=== PATIENT | female | born 1955 | race Caucasian/White ===

== ENCOUNTER 2017-03-01 16:17 | Emergency (ER) | payer MEDICAID ==
[~2017-03-01] VITALS: Ht 160 cm; Wt 89.8 kg
--- NOTE | 2017-03-01 17:08 | RADIOLOGY REPORT PS360 ---
KNEE-3 VIEWS-LT COMPARISON: None HISTORY: Left knee pain after a fall at home TECHNIQUE: AP lateral and oblique views FINDINGS: There is a mildly depressed fracture of the lateral tibial plateau. There is a moderate-sized sized joint effusion are relatively in the suprapatellar bursa. The calcified periarticular calcification probably within the os to joint capsule and is a second somewhat curious calcification just beneath the surface of the skin in the popliteal fossa probably dystrophic calcination from previous injury. The femoral condyles and head of the fibula appear intact. IMPRESSION: Mildly depressed lateral tibial plateau fracture associated with moderate-sized joint effusion. Consider follow-up nonemergent CT scan or MRI scan of the knee for better evaluation.
--- NOTE | 2017-03-01 17:39 | Urgent Treatment Center Report ---
History of Present Issue Date/Time Seen by Provider 03/01/17 1630 Visit Reason Pt arrived:Wheelchair Presenting Problem:PT FELL OVER A LEGO BOX AT HOME AND INJURED LT KNEE AT 1530 Location if Accident:Home Onset of symptoms date/time:/ or onset unknown for:MEDICAL HX UNKNOWN Have you (or family members/close friends) recently traveled outside the [place]? N If Yes, where/when: Have you had exposure to infectious disease within the past month? TB? Other? Specify: Patient family advised that she was at home playing with her grandchildren when she slipped and fell over Lego box and her left knee folded back underneath her States that she immediately yelled and had sharp pain that shot through her leg Family assisted her in to [facility] to get checked ALLERGIES Uncoded Allergies: STEROID (Mild, 03/01/17) History Medical History General CAD? No Angina: No ME: No Hypertension? Yes Hyperlipidemia? Yes CHF? No DVT? No PE? No COPD? Yes Asthma? No Anemia? No GERD? No Gastric ulcers? No GI Bleed? No Hernia? Yes Thyroid Problems? No Hypothyroidism? No CVA? Yes Seizures? No Diabetes? Yes Insulin Dependent: No Insulin Pump: No Home FSBS? Yes Renal Insuffiency? No UTI? No Stones? Yes BPH? No GB Disease: Yes Nephritic Syndrome? No Asplenia? No Hepatitis? No Sickle Cell Disease? No Arthritis? No Migraines? No Cataracts? No Glaucoma? No MRSA? No HIV? No TB? No Anxiety? No Depression? No Cancer? No More? No Immunization HX DT/Tetanus 5-10 YRS Flu NOT SURE Pneumonia NEVER Surgical Hx Previous Surgery?Y LAP LENY APPENDECTOMY PARTIAL HYSTERECTOMY TUBAL LIGATION Family History Family HX Diabetes Yes CAD No Hypertension Yes Hyperlipidemia Yes Cancer Yes TB No Social History Smoking Hx Smoker: Current Every Day Smoker Tobacco: Yes Type Cigarettes Packs/day 1 1/2 - 2 Packs Alcohol Alcohol: No Review of Systems All Other Systems Reviewed and Negative Comment Pain in left knee area after falling at home and left leg bent underneath her Physical Exam Vital Signs Vital Signs Date Time Temp Pulse Resp B/P Pulse O2 O2 Flow FiO2 Ox Delivery Rate 03/01 1656 98.1 79 18 150/80 95 General Appearance normal appearance, WD/WN, no apparent distress Respiratory Status Yes: trachea midline, chest symmetrical. No: respiratory distress. Cardiovascular normal exam, regular rate/rhythm Extremities swelling, Pain and mild swelling in left knee and lower leg after falling at home, good pulses noted with good cap refill, denies numbness, no change in color or temperature Neurologic alert, normal exam, oriented x 3 Medical Decision Making LABS/Meds/Orders Pt receiving controlled substance in ED? No Results/Orders Current Medication Orders Sig/Bernarda Start time Last Medication Dose Route Stop Time Status Admin Ibuprofen 800 MG ONCE ONE 03/01 1700 DC 03/01 PO 03/01 170 1656 Ibuprofen 0 .STK-MED ONE 03/01 1653 DC PO Orders Procedure Date/time Status UTC STABILIZE JOINT/AREA 03/01 1734 Active UTC STABILIZE JOINT/AREA 03/01 172 Active XRAY/CT/US XRAY/CT/US XRAY knee XR interpretation by discussed w/radiologist Xray Results Lateral tibial plateau fracture Consult MD Physician Consult Consult/PCP Dr Cristobal, advised place in knee Reason Orthopedic eval/care Comments Dr Cristobal spoke to advised to place Knee immobilizer and place on crutches non- weight baring and follow up in his office on Thursday Progress [facility] Progress Notes Comment Consulted with Dr Knott from ER, he came to [facility] and spoke with patient and did quick assessment due to patient fracture and needed something stronger for pain. Departure Departure Time of Disposition 1732 Disposition DC Home or Self Care(routine) Clinical Impression Primary Impression: Tibial plateau fracture, left Qualifiers: Encounter type: initial encounter Fracture type: closed Qualified Code: S82.142A - Displaced bicondylar fracture of left tibia, initial encounter for closed fracture Condition STABLE Referrals ARMINDA BERGERON, FLORES VERDUGO: Tomorrow-Call Office Call office tomorrow and make appoitnemtn for Thursday SAUL RAMIREZ (Family) Patient Instructions How To Perform RICE (Rest, Ice, Compress, Elevate), How to Quit Smoking, How to Use Crutches, SMOKING-COUNSELING PATIENTS Additional Instructions Call Dr Cristobal office tomorrow and make appointment for Thursday Take medication as prescribed REturn if needed *non-weight bearing Do not bear weigh on this leg use crutches as instructed in the office *RICE, Rest the extremity, Ice 15-20 minutes 3-4 times daily, Compress- wear the manas wrap as discussed as much as possible to help reduce swelling and pain, Elevate the extremity when at rest *Manas wrap is for support and help control swelling, use it except in the shower. Be sure that is not to tight but not to loose either *Elevate when resting *Ibuprofen every 6-8 hours as needed for pain an inflammation. Immediately follow up for new or worsening of symptoms, or no noticeable improvement over the next 3-5 days Discharge Counseling Counseled pt/family regarding diagnosis, test results, medications/RX, home care, follow up needs Comments Prescription written by Dr Knott at [phone]
--- NOTE | 2017-03-01 17:39 | Urgent Treatment Center Report ---
History of Present Issue Date/Time Seen by Provider 03/01/17 1630 Visit Reason Pt arrived:Wheelchair Presenting Problem:PT FELL OVER A LEGO BOX AT HOME AND INJURED LT KNEE AT 1530 Location if Accident:Home Onset of symptoms date/time:/ or onset unknown for:MEDICAL HX UNKNOWN Have you (or family members/close friends) recently traveled outside the [place]? N If Yes, where/when: Have you had exposure to infectious disease within the past month? TB? Other? Specify: Patient family advised that she was at home playing with her grandchildren when she slipped and fell over Lego box and her left knee folded back underneath her States that she immediately yelled and had sharp pain that shot through her leg Family assisted her in to [facility] to get checked ALLERGIES Uncoded Allergies: STEROID (Mild, 03/01/17) History Medical History General CAD? No Angina: No PR: No Hypertension? Yes Hyperlipidemia? Yes CHF? No DVT? No PE? No COPD? Yes Asthma? No Anemia? No GERD? No Gastric ulcers? No GI Bleed? No Hernia? Yes Thyroid Problems? No Hypothyroidism? No CVA? Yes Seizures? No Diabetes? Yes Insulin Dependent: No Insulin Pump: No Home FSBS? Yes Renal Insuffiency? No UTI? No Stones? Yes BPH? No GB Disease: Yes Nephritic Syndrome? No Asplenia? No Hepatitis? No Sickle Cell Disease? No Arthritis? No Migraines? No Cataracts? No Glaucoma? No MRSA? No HIV? No TB? No Anxiety? No Depression? No Cancer? No More? No Immunization HX DT/Tetanus 5-10 YRS Flu NOT SURE Pneumonia NEVER Surgical Hx Previous Surgery?Y LAP LENY APPENDECTOMY PARTIAL HYSTERECTOMY TUBAL LIGATION Family History Family HX Diabetes Yes CAD No Hypertension Yes Hyperlipidemia Yes Cancer Yes TB No Social History Smoking Hx Smoker: Current Every Day Smoker Tobacco: Yes Type Cigarettes Packs/day 1 1/2 - 2 Packs Alcohol Alcohol: No Review of Systems All Other Systems Reviewed and Negative Comment Pain in left knee area after falling at home and left leg bent underneath her Physical Exam Vital Signs Vital Signs Date Time Temp Pulse Resp B/P Pulse O2 O2 Flow FiO2 Ox Delivery Rate 03/01 1656 98.1 79 18 150/80 95 General Appearance normal appearance, WD/WN, no apparent distress Respiratory Status Yes: trachea midline, chest symmetrical. No: respiratory distress. Cardiovascular normal exam, regular rate/rhythm Extremities swelling, Pain and mild swelling in left knee and lower leg after falling at home, good pulses noted with good cap refill, denies numbness, no change in color or temperature Neurologic alert, normal exam, oriented x 3 Medical Decision Making LABS/Meds/Orders Pt receiving controlled substance in ED? No Results/Orders Current Medication Orders Sig/Bernarda Start time Last Medication Dose Route Stop Time Status Admin Ibuprofen 800 MG ONCE ONE 03/01 1700 DC 03/01 PO 03/01 170 1656 Ibuprofen 0 .STK-MED ONE 03/01 1653 DC PO Orders Procedure Date/time Status UTC STABILIZE JOINT/AREA 03/01 1734 Active UTC STABILIZE JOINT/AREA 03/01 172 Active XRAY/CT/US XRAY/CT/US XRAY knee XR interpretation by discussed w/radiologist Xray Results Lateral tibial plateau fracture Consult MD Physician Consult Consult/PCP Dr Cristobal, advised place in knee Reason Orthopedic eval/care Comments Dr Cristobal spoke to advised to place Knee immobilizer and place on crutches non- weight baring and follow up in his office on Thursday Progress [facility] Progress Notes Comment Consulted with Dr Knott from ER, he came to [facility] and spoke with patient and did quick assessment due to patient fracture and needed something stronger for pain. Departure Departure Time of Disposition 1732 Disposition DC Home or Self Care(routine) Clinical Impression Primary Impression: Tibial plateau fracture, left Qualifiers: Encounter type: initial encounter Fracture type: closed Qualified Code: S82.142A - Displaced bicondylar fracture of left tibia, initial encounter for closed fracture Condition STABLE Referrals ARMINDA BERGERON, FLORES VERDUGO: Tomorrow-Call Office Call office tomorrow and make appoitnemtn for Thursday SAUL RAMIREZ (Family) Patient Instructions How To Perform RICE (Rest, Ice, Compress, Elevate), How to Quit Smoking, How to Use Crutches, SMOKING-COUNSELING PATIENTS Additional Instructions Call Dr Cristobal office tomorrow and make appointment for Thursday Take medication as prescribed REturn if needed *non-weight bearing Do not bear weigh on this leg use crutches as instructed in the office *RICE, Rest the extremity, Ice 15-20 minutes 3-4 times daily, Compress- wear the manas wrap as discussed as much as possible to help reduce swelling and pain, Elevate the extremity when at rest *Manas wrap is for support and help control swelling, use it except in the shower. Be sure that is not to tight but not to loose either *Elevate when resting *Ibuprofen every 6-8 hours as needed for pain an inflammation. Immediately follow up for new or worsening of symptoms, or no noticeable improvement over the next 3-5 days Discharge Counseling Counseled pt/family regarding diagnosis, test results, medications/RX, home care, follow up needs Comments Prescription written by Dr Knott at [phone]
[2017-03-01 17:41] VITALS: BP 150/80
--- OUTSIDE RECORDS SUMMARY | 2017-03-06 21:06 | External Medical Summary Rpt | CCD ---
Author Author , AISLINN TAO Address Unknown Phone Purpose Continuity of Care Document - 02-01-2014 through 2016 Allergies, Adverse Reactions, Alerts Clinical Alert Notifications Alert Diabetes: no A1C in the last 6 months Diabetes: no eye exam in the last 365 days Diabetes: no influenza vaccine in the last 365 days Diabetes: no lipid panel in the last 365 days Diabetes: no urine protein screening in the last 365 days Medications Na ND Rx Da Fi Fi Am Da Di Ph RX Ph St me C No te ll ll ou ys ag ar # ys at rm s nt no ma ic us Or Da si cy ia de te s n re d LO 00 08 09 30 30 00 KE Ac RA 78 -2 -2 .0 00 NT ti TA 15 9- 2- 00 00 UC ve DI 07 20 20 86 [place] NE 70 17 17 07 1 90 CV 10 S PH MG AR MA TA CY BL ET LL C, DB A CV S PH AR MA CY #0 54 [id number] FL 00 08 09 16 30 00 KE Ac UT 05 -2 -2 .0 00 NT ti IC 43 9- 2- 00 00 UC ve 27 20 20 86 [place] ON 09 17 17 07 E [address] S OP PH AR 50 MA CY MC G LL SP C, RA Y DB A CV S PH AR MA CY #0 54 37 ME 65 08 09 90 30 00 KE Ac CL 16 -1 -1 .0 00 NT ti IZ 20 9- 5- 00 00 UC ve IN 44 20 20 86 [place] E 21 17 17 07 25 0 87 CV S MG PH AR TA MA BL CY ET LL C, DB A CV S PH AR MA CY #0 54 37 LI 68 08 09 90 90 00 KE Ac SI 18 -1 -0 .0 00 NT ti NO 00 5- 8- [address] 98 20 20 89 [place] 00 17 17 31 3 24 CV 10 S PH MG AR MA TA CY BL ET LL C, DB A CV S PH AR MA CY #[address] 00 08 09 90 90 00 KE Ac AV 09 -1 -0 .0 00 NT ti 37 5- 8- 00 00 UC ve TA 20 20 20 89 [place] TI 19 17 17 31 N 8 23 CV SO S DI PH UM AR MA 20 CY MG LL C, TA B DB A CV S PH AR MA CY #0 54 37 GL 60 07 07 18 60 00 KE Ac IP 50 -0 -2 0. 00 NT ti IZ 50 4- 8- 00 00 UC ve ID 14 20 20 0 87 [place] E 10 17 17 19 5 1 41 CV MG S PH TA AR BL MA ET CY LL C, DB A CV S PH AR MA CY #0 54 37 LI 68 05 06 90 90 00 KE Ac SI 18 -2 -1 .0 00 NT ti NO 00 3- 6- [address] 98 20 20 89 [place] 00 17 17 31 3 24 CV 10 S PH MG AR MA TA CY BL ET LL C, DB A CV S PH AR MA CY #[address] 00 05 06 90 90 00 KE Ac AV 09 -2 -1 .0 00 NT ti 37 3- 6- 00 00 UC ve TA 20 20 20 89 [place] TI 19 17 17 31 N 8 23 CV SO S DI PH UM AR MA 20 CY MG LL C, TA B DB A CV S PH AR MA CY #0 54 37
--- OUTSIDE RECORDS SUMMARY | 2017-03-06 21:06 | External Medical Summary Rpt | CCD ---
Author Author , AISLINN TAO Address Unknown Phone [email or web address] Purpose Continuity of Care Document - 02-01-2014 [...] 17 17 07 E 9 91 CV MD S OP PH AR 50 MA CY [...] 00 5- 8- 00 00 UC ve MD 98 20 20 89 [place] 00 17 17 31 3 24 CV 10 S PH MG AR MA TA CY BL ET LL C, DB A CV S PH AR MA CY #0 54 37 MD 00 08 09 90 90 00 KE [...] 00 3- 6- 00 00 UC ve MD 98 20 20 89 [place] 00 17 17 31 3 24 CV 10 S PH MG AR MA TA CY BL ET LL C, DB A CV S PH AR MA CY #0 54 37 MD 00 05 06 90 90 00 KE [...]
--- OUTSIDE RECORDS SUMMARY | 2017-03-06 21:07 | External Medical Summary Rpt ---
Author Author LIUSHERI Lawson, [employer] Organization [employer] Address Unknown Phone Unavailable Results BMP Observa Value Referen Units Interpr Notes Date tion ce etation Range Sodium 135 136 - mmol/L Low No Jun 23 145 informa 2017 tion in 9:41 PM source data Potassi 5.3 3.5 - mmol/L High No Jun 23 um 5.0 informa 2016 [Moles/ tion in 9:41 PM volume] source in data Serum or Plasma Chlorid 94 98 - mmol/L Low No Jun 23 e 107 informa 2016 tion in 9:41 PM source data Carbon 30 22 - 29 mmol/L High No Jun 23 dioxide informa 2016 , total tion in 9:41 PM source [Moles/ data volume] in Serum or Plasma Anion 11 7 - 16 mmol/L No No Jun 23 Gap informa informa 2017 tion in tion in 9:41 PM source source data data CALCIUM 9.4 8.8 - mg/dL No No Jun 23 .TOTAL 10.2 informa informa 2016 tion in tion in 9:41 PM source source data data Glucose 267 82 - mg/dL High No Jun 23 Lvl 100 informa 2017 tion in 9:41 PM source data BUN 17 8 - 23 mg/dL No No Jun 23 informa informa 2017 tion in tion in 9:41 PM source source data data Creatin 0.56 0.51 - mg/dL No No Jun 23 ine 1.30 informa informa 2017 tion in tion in 9:41 PM source source data data Ur Malb/Cr Observa Value Referen Units Interpr Notes Date tion ce etation Range Urine 459.7 No mg/L No No May 23 Microal informa informa informa 2016 b tion in tion in tion in 5:50 PM source source source data data data Urine 53.4 No mg/dL No No May 23 Creatin informa informa informa 2016 ine tion in tion in tion in 5:50 PM source source source data data data Ur 861 0 - 30 mg/gm High No May 23 Microal informa 2016 b/Creat tion in 5:50 PM source data Lipase Observa Value Referen Units Interpr Notes Date tion ce etation Range Lipase 52 13 - 60 IU/L No No May 23 Lvl informa informa 2016 tion in tion in 5:19 PM source source data data Amylase Observa Value Referen Units Interpr Notes Date tion ce etation Range AMYLASE 42 28 - IU/L No No May 23 .TOTAL 100 informa informa 2016 tion in tion in 5:19 PM source source data data US RIGHT UPPER QUADRANT Observa Value Referen Units Interpr Notes Date ti ce etation Range US No No No No May 17 RIGHT informa informa informa informa 2016 UPPER tion in tion in tion in tion in 8:55 AM QUADRAN source source source source T data data data data 016 9:14 AM\.br\ \.br\Hi story: R10.13- Epigast [place] pain-IC D-10-CM \.br\R9 4.5-Abn ormal results of liver functio n studies -ICD-10 -CM\.br \\.br\C omparis on: None\.b r\\.br\ Finding s:\.br\ \.br\Ga llbladd er: Surgica lly absent\ .br\Danika er: Echogen ic, consist ent with fatty infiltr ation. No focal lesion. \.br\Li issa\.br \appear s mildly enlarge d measuri ng approxi mately 23 cm dome to right hepatic \.br\ti p.\.br\ \.br\Pa ncreas: Visuali zed portion s normal. \.br\Ri ght Kidney: Non-obs tructed .\.br\C ommon duct: <5mm\.b r\No fluid collect ion.\.b r\\.br\ IMPRESS ION:\.b r\Impre ssion: Mildly enlarge d echogen ic liver consist ent with fatty\. br\infi ltratio n.\.br\ Hep C Ab Observa Value Referen Units Interpr Notes Date tion ce etation Range Hep C Negativ Negativ No No No May 15 Ab e e informa informa informa 2016 tion in tion in tion in 9:45 AM source source source data data data Glyco Observa Value Referen Units Interpr Notes Date tion ce etation Range Hemoglo 7.8 <=7.0 % High Referen May 14 bin ce 2015 A1c/Hem Interva 11:15 oglobin l for PM .total Hgb in A1c\.br Blood \\.br\H gb A1c Interpr etation \.br\-- ------- -- ------- ------- --\.br\ \.br\ < 6.0 Non-Ekta betic Range\. br\6.0 - 7.0 ADA Therape utic Target\ .br\ > 7.0 Action suggest ed LDL Observa Value Referen Units Interpr Notes Date tion ce etation Range LDL 84 <=100 mg/dL No < 100 May 14 Calcula informa 2016 juanita tion in 9:59 PM source Optimal data \.br\10 0 - 129 Near or above optimal \.br\13 0 - 159 Borderl ine High\.b r\160 - 189 High\.b r\ >= 190 Very High TSH Observa Value Referen Units Interpr Notes Date tion ce etation Range Thyrotr 1.980 0.270 - mcIU/mL No No May 14 opin 4.200 informa informa 2016 [Units/ tion in tion in 9:59 PM volume] source source in data data Serum or Plasma Lipid Refx Observa Value Referen Units Interpr Notes Date tion ce etation Range Cholest 173 <=200 mg/dL No < 200 May 14 sarah informa 2016 [Percen tion in 9:59 PM tile] source Desirab data le\.br\ 200 - 239 Borderl ine High\.b r\>= 240 High TRIGLYC 113 <=150 mg/dL No < 150 May 14 ERIDES. informa 2016 TOTAL tion in Normal\ 9:59 PM source .br\150 data - 199 Borderl ine High\.b r\200 - 499 High\.b r\ >= 500 Very High CHOLEST 66 >=40 mg/dL No > 60 May 14 EROLS.I informa 2016 N HDL tion in Optimal 9:59 PM source \.br\40 data - 60 Accepta ble\.br \ < 40 Low CBC Observa Value Referen Units Interpr Notes Date tion ce etation Range LEUKOCY 10.5 4.0 - x10(3)/ No May 14 NICOLE 11.0 mcL informa informa 2016 tion in tion in 9:50 PM source source data data Erythro 5.05 3.80 - x10(6)/ No May 14 cytes 5.10 mcL informa informa 2016 [#/volu tion in tion in 9:50 PM me] in source source Blood data data by Automat ed count Hemoglo 14.2 12.0 - gm/dL No May 14 bin 15.6 informa informa 2016 [Mass/v tion in tion in 9:50 PM olume] source source in data data Blood Hematoc 43.8 35.7 - % No May 14 rit 45.9 informa informa 2016 [Volume tion in tion in 9:50 PM source source Fractio data data n] of Blood by Automat ed count Erythro 86.8 82.5 - fL No May 14 cyte 99.8 informa informa 2016 mean tion in tion in 9:50 PM corpusc source source ular data data volume [Entiti c volume] by Automat ed count Erythro 28.1 27.0 - pg No May 14 cyte 34.3 informa informa 2016 mean tion in tion in 9:50 PM corpusc source source ular data data hemoglo bin [Entiti c mass] by Automat ed count Erythro 32.4 32.1 - gm/dL No May 14 cyte 35.3 informa informa 2016 mean tion in tion in 9:50 PM corpusc source source ular data data hemoglo bin concent ration [Mass/v olume] by Automat ed count Erythro 14.4 11.5 - % No May 14 cyte 15.0 informa informa 2016 distrib tion in tion in 9:50 PM ution source source width data data [Ratio] by Automat ed count Platele 256 144 - x10(3)/ No May 14 ts 423 mcL informa informa 2016 [#/volu tion in tion in 9:50 PM me] in source source Blood data data by Automat ed count MPV 10.4 6.8 - fL No No May 14 10.8 informa informa 2016 tion in tion in 9:50 PM source source data data Auto Diff Observa Value Referen Units Interpr Notes Date tion ce etation Range Neutrop 65.5 No % No No May 14 hils informa informa informa 2016 [#/volu tion in tion in tion in 9:50 PM me] in source source source Blood data data data by Automat ed count Lymphoc 23.5 No % No No May 14 ytes informa informa informa 2016 [#/volu tion in tion in tion in 9:50 PM me] in source source source Blood data data data by Automat ed count Monocyt 6.6 No % No No May 14 es informa informa informa 2016 [#/volu tion in tion in tion in 9:50 PM me] in source source source Blood data data data by Automat ed count Eos 3.8 No % No No May 14 Percent informa informa informa 2016 tion in tion in tion in 9:50 PM source source source data data data Baso 0.6 No % No No May 14 Percent informa informa informa 2016 tion in tion in tion in 9:50 PM source source source data data data Neut# 6.9 1.8 - x10(3)/ No No May 14 7.7 mcL informa informa 2016 tion in tion in 9:50 PM source source data data Lymph# 2.5 0.6 - x10(3)/ No No May 14 4.8 mcL informa informa 2016 tion in tion in 9:50 PM source source data data [place]# 0.7 0.0 - x10(3)/ No No Apr 21 1.3 mcL informa informa 2016 tion in tion in 9:50 PM source source data data Eos# 0.4 0.0 - x10(3)/ No No Apr 21 0.5 mcL informa informa 2016 tion in tion in 9:50 PM source source data data Baso# 0.1 0.0 - x10(3)/ No No May 14 0.2 mcL informa informa 2016 tion in tion in 9:50 PM source source data data LDL Observa Value Referen Units Interpr Notes Date tion ce etation Range LDL 93 <=100 mg/dL No < 100 May 03 Calcula informa 2015 juanita tion in 7:02 PM source Optimal data \.br\10 0 - 129 Near or above optimal \.br\13 0 - 159 Borderl ine High\.b r\160 - 189 High\.b r\ >= 190 Very High Lipid Refx Observa Value Referen Units Interpr Notes Date tion ce etation Range Cholest 159 <=200 mg/dL No < 200 May 03 sarah informa 2015 [Percen tion in 7:02 PM tile] source Desirab data le\.br\ 200 - 239 Borderl ine High\.b r\>= 240 High TRIGLYC 96 <=150 mg/dL No < 150 May 03 ERIDES. informa 2015 TOTAL tion in Normal\ 7:02 PM source .br\150 data - 199 Borderl ine High\.b r\200 - 499 High\.b r\ >= 500 Very High CHOLEST 47 >=40 mg/dL No > 60 May 03 EROLS.I informa 2015 N HDL tion in Optimal 7:02 PM source \.br\40 data - 60 Accepta ble\.br \ < 40 Low Glyco Observa Value Referen Units Interpr Notes Date tion ce etation Range Hemoglo 7.5 <=7.0 % High Referen May 03 bin ce 2014 A1c/Hem Interva 6:57 PM oglobin l for .total Hgb in A1c\.br Blood \\.br\H gb A1c Interpr etation \.br\-- ------- -- ------- ------- --\.br\ \.br\ < 6.0 Non-Ekta betic Range\. br\6.0 - 7.0 ADA Therape utic Target\ .br\ > 7.0 Action suggest ed MM MOBILE MAMMO DIGITAL SCREEN W CAD TONIO Observa Value Referen Units Interpr Notes Date tion ce etation Range Procedu No No No No Sep 3 re:MM informa informa informa informa 2015 MOBILE tion in tion in tion in tion in 3:03 PM MAMMO source source source source DIGITAL data data data data SCREEN W CAD TONIO\.br \Reason for exam: screeni ng (asympt omatic) .\.br\M M MOBILE MAMMO DIGITAL SCREEN W CAD TONIO\.br \Bilate ral CC and MLO view(s) were taken.\ .br\The re are scatter ed fibrogl andular densiti es. Compare d to prior studies \.br\th e most recent being 01-17-11 \.br\IM PRESSIO N: Negativ e (ACR-Ca tegory- 1)\.br\ RECOMME NDATION :\.br\R outine screeni ng mammogr am in 1 year.\. br\* The patient with a palpabl e abnorma lity, unexpla ined by breast\ .br\mary ging, should be managed on clinica l basis by the attendi ng physici an.\.br \* Breast imaging has a false negativ e rate of 15%.\.b r\* The patient was notifie d by mail of the results of this examina tion.\. br\*The patient 's informa tion was entered into a [employer] r system with a\.br\t arget\. br\due date for the next mammogr am.\.br \The mammogr am was reviewe d by a Radiolo gist and CAD. Glyco Observa Value Referen Units Interpr Notes Date tion ce etation Range Hemoglo 8.3 <=7.0 % High Initial Dec 162014 A1c/Hem Diagnos 8:20 AM oglobin tic .total Criteri in a\.br\< Blood 5.7 % Normal\ .br\5.7 - 6.4 % At risk for diabete s mellitu s\.br\> = 6.5 % Consist ent with diabete s mellitu s\.br\\ .br\Ekta betes monitor ing\.br \Target Value (ADA recomme nded): < 7 % LDL Observa Value Referen Units Interpr Notes Date tion ce etation Range LDL 88 <=100 mg/dL No < 100 Dec 15 Calcula informa 2014 juanita tion in 7:13 PM source Optimal data \.br\10 0 - 129 Near or above optimal \.br\13 0 - 159 Borderl ine High\.b r\160 - 189 High\.b r\ >= 190 Very High Lipid Refx Observa Value Referen Units Interpr Notes Date tion ce etation Range Cholest 157 <=200 mg/dL No < 200 Dec 15 sarah informa 2015 [Percen tion in 7:13 PM tile] source Desirab data le\.br\ 200 - 239 Borderl ine High\.b r\>= 240 High TRIGLYC 109 <=150 mg/dL No < 150 Dec 15 ERIDES. informa 2015 TOTAL tion in Normal\ 7:13 PM source .br\150 data - 199 Borderl ine High\.b r\200 - 499 High\.b r\ >= 500 Very High CHOLEST 47 >=40 mg/dL No > 60 Dec 15 EROLS.I informa 2015 N HDL tion in Optimal 7:13 PM source \.br\40 data - 60 Accepta ble\.br \ < 40 Low Ur Malb/Cr Observa Value Referen Units Interpr Notes Date tion ce etation Range Urine 79.5 No mg/L No No Dec 05 Microal informa informa informa 2015 b tion in tion in tion in 5:25 PM source source source data data data Urine 54.3 No mg/dL No No Dec 05 Creatin informa informa informa 2015 ine tion in tion in tion in 5:25 PM source source source data data data Ur 146 0 - 20 mg/gm High No Dec 05 Microal informa 2015 b/Creat tion in 5:25 PM source data BMP Observa Value Referen Units Interpr Notes Date tion ce etation Range Sodium 140 136 - mmol/L No No Feb 14 145 informa informa 2014 tion in tion in 8:27 PM source source data data Potassi 4.7 3.5 - mmol/L No No Feb 14 um 5.0 informa informa 2013 [Moles/ tion in tion in 8:27 PM volume] source source in data data Serum or Plasma Chlorid 97 98 - mmol/L Low No Sep 23 e 107 informa 2013 tion in 8:27 PM source data Carbon 29 22 - 29 mmol/L No No Jan 23 dioxide informa informa 2014 , total tion in tion in 8:27 PM source source [Moles/ data data volume] in Serum or Plasma Anion 14 7 - 16 mmol/L No No Jan 23 Gap informa informa 2013 tion in tion in 8:27 PM source source data data CALCIUM 10.1 8.6 - mg/dL No No Feb 14 .TOTAL 10.2 informa informa 2013 tion in tion in 8:27 PM source source data data Glucose 214 74 - mg/dL High No Feb 14 Lvl 100 inform2013 tion in 8:27 PM source data BUN 20 6 - 20 mg/dL No No Feb 14 informa informa 2013 tion in tion in 8:27 PM source source data data Creatin 0.60 0.51 - mg/dL No No Feb 14 ine 1.00 informa informa 2013 tion in tion in 8:27 PM source source data data Glyco Observa Value Referen Units Interpr Notes Date ti ce etation Range Hemoglo 7.7 <=7.0 % High Initial Sep 11 2013 A1c/Hem Diagnos 8:38 AM ogmae tic .total Criteri in a\.br\< Blood 5.7 % Normal\ .br\5.7 - 6.4 % At risk for diabete s mellitu s\.br\> = 6.5 % Consist ent with diabete s mellitu s\.br\\ .br\Ekta betes monitor ing\.br \Target Value (ADA recomme nded): < 7 % LDL Observa Value Referen Units Interpr Notes Date ti ce etation Range LDL 95 <=100 mg/dL No < 100 Sep 10 Calcula informa 2013 juanita tion in 6:47 PM source Optimal data \.br\10 0 - 129 Near or above optimal \.br\13 0 - 159 Borderl ine High\.b r\160 - 189 High\.b r\ >= 190 Very High Lipid Refx Observa Value Referen Units Interpr Notes Date ti ce etation Range Cholest 186 <=200 mg/dL No < 200 Sep 10 sarah informa 2013 [Percen tion in 6:46 PM tile] source Desirab data le\.br\ 200 - 239 Borderl ine High\.b r\>= 240 High TRIGLYC 193 <=150 mg/dL High < 150 Sep 10 ERIDES. 2014 TOTAL Normal\ 6:46 PM .br\150 - 199 Borderl ine High\.b r\200 - 499 High\.b r\ >= 500 Very High CHOLEST 52 >=40 mg/dL No > 60 Sep 10 EROLS.I informa 2014 N HDL tion in Optimal 6:46 PM source \.br\40 data - 60 Accepta ble\.br \ < 40 Low Hepatic Pa Observa Value Referen Units Interpr Notes Date tion ce etation Range Albumin 4.3 3.5 - gm/dL No No Sep 10 5.2 informa informa 2013 [Mass/v tion in tion in 6:46 PM olume] source source in data data Serum or Plasma Bilirub 0.2 0.1 - mg/dL No No Sep 10 in.tota 1.3 informa informa 2014 l tion in tion in 6:46 PM [Mass/v source source olume] data data in Serum or Plasma Alkalin 103 35 - IU/L No No Sep 10 e 104 informa informa 2014 phospha tion in tion in 6:46 PM tase source source [Enzyma data data tic activit y/volum e] in Serum or Plasma Ur Malb/Cr Observa Value Referen Units Interpr Notes Date tion ce etation Range Urine 132.1 No mg/L No No Sep 10 Microal informa informa informa 2014 b tion in tion in tion in 6:38 PM source source source data data data Urine 152.7 No mg/dL No No Sep 10 Creatin informa informa informa 2014 ine tion in tion in tion in 6:38 PM source source source data data data Ur 87 0 - 20 mg/gm High No Sep 10 Microal informa 2013 b/Creat tion in 6:38 PM source data Auto Diff Observa Value Referen Units Interpr Notes Date tion ce etation Range Neutrop 63.1 No % No No Sep 10 hils informa informa informa 2013 [#/volu tion in tion in tion in 6:00 PM me] in source source source Blood data data data by Automat ed count Lymphoc 26.0 No % No No Sep 10 ytes informa informa informa 2013 [#/volu tion in tion in tion in 6:00 PM me] in source source source Blood data data data by Automat ed count Monocyt 6.8 No % No No Sep 10 es informa informa informa 2013 [#/volu tion in tion in tion in 6:00 PM me] in source source source Blood data data data by Automat ed count Eos 3.6 No % No No Sep 10 Percent informa informa informa 2013 tion in tion in tion in 6:00 PM source source source data data data Baso 0.5 No % No No Sep 10 Percent informa informa informa 2014 tion in tion in tion in 6:00 PM source source source data data data Neut# 6.6 1.8 - x10(3)/ No No Sep 10 7.7 mcL informa informa 2013 tion in tion in 6:00 PM source source data data Lymph# 2.7 0.6 - x10(3)/ No No Sep 10 4.8 mcL informa informa 2013 tion in tion in 6:00 PM source source data data [place]# 0.7 0.0 - x10(3)/ No No Sep 10 1.3 mcL informa informa 2013 tion in tion in 6:00 PM source source data data Eos# 0.4 0.0 - x10(3)/ No No Sep 10 0.5 mcL informa informa 2013 tion in tion in 6:00 PM source source data data Baso# 0.1 0.0 - x10(3)/ No No Sep 10 0.2 mcL informa informa 2013 tion in tion in 6:00 PM source source data data CBC Observa Value Referen Units Interpr Notes Date tion ce etation Range LEUKOCY 10.5 4.0 - x10(3)/ No No Sep 10 NICOLE 11.0 mcL informa informa 2013 tion in tion in 6:00 PM source source data data Erythro 4.86 3.80 - x10(6)/ No No Sep 10 cytes 5.10 mcL informa informa 2013 [#/volu tion in tion in 6:00 PM me] in source source Blood data data by Automat ed count Hemoglo 14.1 12.0 - gm/dL No No Sep 10 bin 15.6 informa informa 2013 [Mass/v tion in tion in 6:00 PM olume] source source in data data Blood Hematoc 42.5 35.7 - % No No Sep 10 rit 45.9 informa informa 2014 [Volume tion in tion in 6:00 PM source source Fractio data data n] of Blood by Automat ed count Erythro 87.4 82.5 - fL No No Sep 10 cyte 99.8 informa informa 2014 mean tion in tion in 6:00 PM corpusc source source ular data data volume [Entiti c volume] by Automat ed count Erythro 29.1 27.0 - pg No No Sep 10 cyte 34.3 informa informa 2014 mean tion in tion in 6:00 PM corpusc source source ular data data hemoglo bin [Entiti c mass] by Automat ed count Erythro 33.3 32.1 - gm/dL No No Sep 10 cyte 35.3 informa informa 2014 mean tion in tion in 6:00 PM corpusc source source ular data data hemoglo bin concent ration [Mass/v olume] by Automat ed count Erythro 13.6 11.5 - % No No Sep 10 cyte 15.0 informa informa 2014 distrib tion in tion in 6:00 PM ution source source width data data [Ratio] by Automat ed count Platele 269 144 - x10(3)/ No No Sep 10 ts 423 mcL informa informa 2014 [#/volu tion in tion in 6:00 PM me] in source source Blood data data by Automat ed count MPV 10.0 6.8 - fL No No Sep 10 10.8 informa informa 2014 tion in tion in 6:00 PM source source data data
--- OUTSIDE RECORDS SUMMARY | 2017-03-06 21:07 | External Medical Summary Rpt | CCD ---
Demographics Home Phone Preferred Language Nigerian Marital Status Unknown Mormonism Affiliation Unknown Race Unknown Ethnic Group Unknown Author Author , EDUAR HATFIELDSHERI Address Unknown Phone [email or web address] Immunization Name Date Rout CVX Reac Dose Comm Prov Is Faci e tion ent ider Refu lity Give sed n Infl 11-1 88 999 Hist D200 No D200 uenz 7-20 oric 31 31 a, 16 al UF Info rmat ion - Sour ce Unsp ecif ied Tdap 08-2 115 999 Hist RI No RI , 4-20 oric Adso 15 al rbed Info rmat ion - Sour ce Unsp ecif ied Infl 09-2 Intr 999 Hist RI No RI uenz 3-20 amus oric a 14 cula al Quad r Info rmat W/Pr ion es - Sour ce Unsp ecif ied PPV2 09-2 Intr 33 999 Hist RI No RI 3 3-20 amus oric 14 cula al r Info rmat ion - Sour ce Unsp ecif ied PPV2 02-0 Intr 33 999 Hist RI No RI 3 8-20 amus oric 09 cula al r Info rmat ion - Sour ce Unsp ecif ied
--- OUTSIDE RECORDS SUMMARY | 2017-03-06 21:07 | External Medical Summary Rpt ---
[...] in 9:50 PM source source data data Posey# 0.7 0.0 - x10(3)/ No No Apr [...] 's informa tion was entered into a [employer] r system with a\.br\t arget\. br\due date [...] in 6:00 PM source source data data Posey# 0.7 0.0 - x10(3)/ No No Sep [...]
--- OUTSIDE RECORDS SUMMARY | 2017-03-06 21:07 | External Medical Summary Rpt | CCD ---
Author Author , AISLINN TAO Address Unknown Phone [email or web address] Purpose Continuity of Care Document - 11-07-2016 through 2016 Medications Na ND Rx Da Fi Fi Am Da Di Ph RX Ph St me C No te ll ll ou ys ag ar # ys at rm s nt no ma ic us Or Da si cy ia de te s n re d FL 00 08 09 16 30 00 KE Ac UT 05 -2 -2 .0 00 NT ti IC 43 9- 2- 00 00 UC ve 27 20 20 86 [place] ON 09 17 17 07 E 9 91 CV NJ S OP PH AR 50 MA CY MC G LL SP C, RA Y DB A CV S PH AR MA CY #[id number] LO 00 08 09 30 30 00 [...] 00 5- 8- 00 00 UC ve [place] 98 20 20 89 [place] 00 17 17 31 3 24 CV 10 S PH MG AR MA TA CY BL ET LL C, DB A CV S PH AR MA CY #[id number] [place] 00 08 09 90 90 00 KE [...] PH AR MA CY #0 [id number] [place] 00 05 06 90 90 00 KE [...] 00 3- 6- 00 00 UC ve [place] 98 20 20 89 [place] 00 17 17 31 3 24 CV 10 S PH MG AR MA TA CY BL ET LL C, DB A CV S PH AR MA CY #[id number]
--- OUTSIDE RECORDS SUMMARY | 2017-03-06 21:07 | External Medical Summary Rpt | CCD ---
Demographics Home Phone Preferred Language Cuban Marital Status Unknown Rastafarian Affiliation Unknown Race Unknown Ethnic Group Unknown Author Author , EDUAR HATFIELDSHERI Address Unknown Phone [email or web address] Immunization Name Date Rout CVX Reac Dose Comm Prov Is Faci e tion ent ider Refu lity Give sed n Infl 11-1 88 999 Hist D200 No D200 uenz 7-20 oric 31 31 a, 16 al UF Info rmat ion - Sour ce Unsp ecif ied Tdap 08-2 115 999 Hist [place] No [place] , 4-20 oric Adso 15 al rbed Info rmat ion - Sour ce Unsp ecif ied Infl 09-2 Intr 999 Hist NJ No [place] uenz 3-20 amus oric a 14 cula al Quad r Info rmat W/Pr ion es - Sour ce Unsp ecif ied PPV2 09-2 Intr 33 999 Hist NJ No NJ 3 3-20 amus oric 14 cula al r Info rmat ion - Sour ce Unsp ecif ied PPV2 02-0 Intr 33 999 Hist NJ No NJ 3 8-20 amus oric 09 cula al r Info rmat ion - Sour ce Unsp ecif ied
--- OUTSIDE RECORDS SUMMARY | 2017-03-06 21:07 | External Medical Summary Rpt | CCD ---
Author Author , AISLINN TAO Address Unknown Phone [email or web address] Purpose Continuity of Care Document - 11-07-2016 [...] 17 17 07 E 9 91 CV [place] S OP PH AR 50 MA CY [...] 00 5- 8- 00 00 UC ve [place] 98 20 20 89 [place] 00 17 17 31 3 24 CV 10 S PH MG AR MA TA CY BL ET LL C, DB A CV S PH AR MA CY #[id number] [place] 00 08 09 90 90 00 KE [...] PH AR MA CY #0 [id number] [place] 00 05 06 90 90 00 KE [...] 00 3- 6- 00 00 UC ve [place] 98 20 20 89 [place] 00 17 17 31 3 24 CV 10 S PH MG AR MA TA CY BL ET LL C, DB A CV S PH AR MA CY #[id number]
== END 2017-03-01 17:42 | disposition home or self-care (01) ==
LOC: UTC 16:17
PROC: 2W3MX1Z Immobilization of Left Lower Extremity using Splint (ICD-10-PCS; principal; 2017-03-01)
DX: S82.142A Displaced bicondylar fracture of left tibia, initial encounter for closed fracture (principal); I10 Essential (primary) hypertension; E11.9 Type 2 diabetes mellitus without complications; J44.9 Chronic obstructive pulmonary disease, unspecified; F17.210 Nicotine dependence, cigarettes, uncomplicated; W01.0XXA Fall on same level from slipping, tripping and stumbling without subsequent striking against object, initial encounter; Y92.019 Unspecified place in single-family (private) house as the place of occurrence of the external cause

== ENCOUNTER → 2017-03-03 | Outpatient (CLI) | payer MEDICAID ==
--- NOTE | 2017-03-03 12:47 | RADIOLOGY REPORT PS360 ---
CT EXT.LOWER-LT-W/O CONTRAST INDICATION: Tibial plateau fracture, left knee pain and swelling LEFT KNEE FX ORDERING PHYSICIAN: FLORES HILLIARD MD PATIENT AGE: 61 years COMPARISON: Radiograph of 03/01/2017 TECHNIQUE: Axial images are obtained without contrast. Sagittal and coronal and 3-D reformatted images are reviewed as well. FINDINGS: There is a mildly depressed comminuted fracture involving the lateral tibial plateau. The main fracture fragments are depressed by approximately 3 mm. There is intra-articular involvement of the fracture. Fracture does not extend into the interspinous region of the proximal tibia nor does it involve the medial aspect of the proximal tibia. There are mild osteoarthritic changes of the medial compartment and patellofemoral joint with minimal osteoarthritic change of the lateral compartment. There is a moderate to large size knee joint effusion in the suprapatellar region. A large Thomson's cyst is present measuring 8 cm cephalad to caudad and 3.4 cm AP. A coarse calcification is present within the cyst. This calcification measures 11 mm. Is probably due to synovial osteochondroma. The Thomson's cyst has some increase density posteriorly with a fat fluid level superiorly indicating lipo- hemarthrosis. Additional coarse calcifications are present in the posterior aspect of the knee joint posterior to the insertion of the posterior cruciate ligament and along the anterior aspect of the intercondylar region of the proximal tibia. There is some sclerosis of the medial femoral condyle articular surface with small subcortical lucency consistent with an area of osteochondrosis. IMPRESSION: 1. Mildly depressed comminuted lateral tibial plateau fracture with large knee joint effusion and lipo- hemarthrosis within a large Thomson's cyst. 2. Osteoarthritis with synovial osteochondromas/loose bodies 3. Osteochondrosis involves the medial femoral condyle
== END ==
LOC: RAD 09:45
DX: S82.122A Displaced fracture of lateral condyle of left tibia, initial encounter for closed fracture (principal)

== ENCOUNTER → 2017-04-23 | Outpatient (CLI) | payer MEDICAID ==
--- NOTE | 2017-04-23 11:31 | RADIOLOGY REPORT PS360 ---
KNEE-3 VIEWS-LT HISTORY: Follow-up fracture FU FX TIBIAL PLATEAU ORDERING PHYSICIAN: FLORES HILLIARD MD PATIENT AGE: 62 years COMPARISON: 03-26-17 FINDINGS: Minimally depressed lateral tibial plateau fracture is once again noted overall not significantly changed. Posterior intra-articular calcific densities as well as a subcutaneous posterior calcific density once again noted. IMPRESSION: No change minimal depressed lateral tibial plateau fracture
== END ==
LOC: RAD 10:58
DX: S82.122D Displaced fracture of lateral condyle of left tibia, subsequent encounter for closed fracture with routine healing (principal)